=== PATIENT | female | born 1985 | race Hispanic/Latino ===

== ENCOUNTER 2018-12-23 16:59 | Emergency (ER) | payer MEDICAID ==
[2018-12-23] MEDS ORDERED: IBUPROFEN PO ONE (17:32)
--- NOTE | 2018-12-23 21:20 | Emergency Department Report ---
ED General Adult HPI - General Chief complaint: Upper Respiratory Infection Stated complaint: ABD PAIN/EXTREME PAIN Time Seen by Provider: 12/23/18 20:50 Source: patient Mode of arrival: Ambulatory Limitations: No Limitations - History of Present Illness Initial comments: pt is a 33 y/o aaf with hx of bronchitis who presents for bodyaches fever cough abd pain nausea no vomiting pt states with current menses pt denies sob bodyache described as 5/10 aching symptoms are exacerbated by activity symptoms are relieved by nothing. Onset/Timin -: days(s) Location: abdomen Radiation: non-radiation Severity scale (0 -10): 5 Quality: aching Consistency: constant Improves with: none Worsens with: other (activity ) Associated Symptoms: cough, fever/chills, malaise, nausea/vomiting. denies: rash, seizure Treatments Prior to Arrival: none - Related Data Previous Rx's Medication Instructions Recorded Last Taken Type HYDROcodone/APAP 5-325 [[place] 1 each PO Q6HR PRN #15 tablet 12/08/14 Unknown Rx 5-325 mg TAB] Promethazine [Phenergan] 25 mg PO Q6H PRN #20 tablet 12/08/14 Unknown Rx metroNIDAZOLE [Flagyl] 500 mg PO Q12H #14 tablet 12/08/14 Unknown Rx Ibuprofen [Motrin] 800 mg PO Q6H PRN #30 tablet 09/23/18 Unknown Rx Fluconazole [Diflucan TAB] 150 mg PO ONCE #1 tablet 12/24/18 Unknown Rx Ibuprofen 800 mg PO TID PRN #30 tablet 12/24/18 Unknown Rx Nitrofurantoin Monohyd/M-Cryst 100 mg PO BID 7 Days #14 capsule 12/24/18 Unknown Rx [Macrobid 100 mg Capsule] Allergies Allergy/AdvReac Type Severity Reaction Status Date / Time No Known Allergies Allergy Verified 09/22/18 16:16 ED Review of Systems ROS: Stated complaint: ABD PAIN/EXTREME PAIN Other details as noted in HPI Constitutional: fever, malaise Eyes: denies: eye pain, eye discharge, vision change ENT: congestion. denies: ear pain, throat pain, epistaxis Respiratory: cough Cardiovascular: denies: chest pain, palpitations Endocrine: no symptoms reported Gastrointestinal: abdominal pain, nausea. denies: diarrhea, constipation, hematemesis, melena, hematochezia Genitourinary: denies: urgency, dysuria, discharge Musculoskeletal: denies: back pain, joint swelling, arthralgia Skin: denies: rash, lesions Neurological: denies: headache, weakness, paresthesias Psychiatric: denies: anxiety, depression Hematological/Lymphatic: denies: easy bleeding, easy bruising ED Past Medical Hx - Past Medical History Previous Medical History?: No Hx Congestive Heart Failure: No Hx Diabetes: No Hx Asthma: No Additional medical history: gallbladder disease - Surgical History Past Surgical History?: Yes Additional Surgical History: 2010 - Social History Smoking Status: Current Every Day Smoker Substance Use Type: None - Medications Home Medications: Home Medications Medication Instructions Recorded Confirmed Last Taken Type HYDROcodone/APAP 5-325 [[place] 1 each PO Q6HR PRN #15 tablet 12/08/14 09/23/18 Unknown Rx 5-325 mg TAB] Promethazine [Phenergan] 25 mg PO Q6H PRN #20 tablet 12/08/14 09/23/18 Unknown Rx metroNIDAZOLE [Flagyl] 500 mg PO Q12H #14 tablet 12/08/14 09/23/18 Unknown Rx Ibuprofen [Motrin] 800 mg PO Q6H PRN #30 tablet 09/23/18 Unknown Rx Fluconazole [Diflucan TAB] 150 mg PO ONCE #1 tablet 12/24/18 Unknown Rx Ibuprofen 800 mg PO TID PRN #30 tablet 12/24/18 Unknown Rx Nitrofurantoin Monohyd/M-Cryst 100 mg PO BID 7 Days #14 capsule 12/24/18 Unkno wn Rx [Macrobid 100 mg Capsule] ED Physical Exam - General Limitations: No Limitations General appearance: alert, in no apparent distress - Head Head exam: Present: atraumatic, normocephalic - Eye Eye exam: Present: normal appearance, PERRL, EOMI Pupils: Present: normal accommodation - ENT ENT exam: Present: normal orophraynx, mucous membranes moist, TM's normal bilaterally, normal external ear exam - Neck Neck exam: Present: normal inspection, full ROM. Absent: tenderness, lymphadenopathy, thyromegaly - Respiratory Respiratory exam: Present: normal lung sounds bilaterally. Absent: respiratory distress, wheezes, stridor, chest wall tenderness - Cardiovascular Cardiovascular Exam: Present: regular rate, normal rhythm, normal heart sounds. Absent: systolic murmur, diastolic murmur, rubs, gallop - GI/Abdominal GI/Abdominal exam: Present: soft, normal bowel sounds. Absent: distended, tende rness, guarding, rebound, rigid, mass, bruit, pulsatile mass, hernia - Rectal Rectal exam: Present: deferred - Extremities Exam Extremities exam: Present: normal inspection, full ROM, normal capillary refill. Absent: tenderness, pedal edema, joint swelling - Back Exam Back exam: Present: normal inspection, full ROM. Absent: tenderness, CVA tenderness (R), CVA tenderness (L), muscle spasm, rash noted - Neurological Exam Neurological exam: Present: alert, oriented X3, CN II-XII intact, normal gait, reflexes normal - Psychiatric Psychiatric exam: Present: normal affect, normal mood - Skin Skin exam: Present: warm, dry, intact, normal color. Absent: rash ED Course Vital Signs 12/23/18 12/23/18 12/24/18 17:30 18:35 00:59 Temperature 101.6 F H Pulse Rate 111 H Respiratory 16 20 20 Rate Blood Pressure 152/95 O2 Sat by Pulse 95 Oximetry ED Medical Decision Making - Lab Data Result diagrams: 12/23/18 21:22 12/23/18 21:22 - Radiology Data Radiology results: report reviewed, image reviewed FINAL REPORT PROCEDURE: Chest. TECHNIQUE: PA and lateral views. HISTORY: Cough and fever. COMPARISON: No prior studies are available for comparison. FINDINGS: The heart and mediastinum appear normal. The lungs are clear and well expanded. There are no pleural effusions. The soft tissues and regional skeleton are unremarkable. IMPRESSION: Normal study. Transcribed By: MRM Dictated By: RANDY DOSHI MD Electronically Authenticated By: RANDY DOSHI MD Signed Date/Time: 12/23/182335 DD/ 34 TD/TT: 12/23/182334 - Medical Decision Making ua: pos leuk, wbc, bacteria, pt denies vaginal discharge is with current menses denies back pain no fever no chills plan: tx for uti given rocephin 1gm ivpb in ed, will dc to home with macrobid ibuprofen, will follow up with pcp in 2-3 days return to ed symptoms worsen, pt verbalized agreement and understanding of discharge plan. Critical care attestation.: If time is entered above; I have spent that time in minutes in the direct care of this critically ill patient, excluding procedure time. ED Disposition Clinical Impression: UTI (urinary tract infection) Qualifiers: Urinary tract infection type: acute cystitis Hematuria presence: without hematuria Qualified Code(s): N30.00 - Acute cystitis without hematuria Disposition: TO HOME OR SELFCARE Is pt being admited?: No Does the pt Need Aspirin: No Condition: Stable Instructions: Urinary Tract Infection in Women (ED) Prescriptions: Fluconazole [Diflucan TAB] 150 mg PO ONCE #1 tablet Ibuprofen 800 mg PO TID PRN #30 tablet PRN Reason: Pain , Severe (7-10) Nitrofurantoin Monohyd/M-Cryst [Macrobid 100 mg Capsule] 100 mg PO BID 7 Days #14 capsule Referrals: [facility] [Outside] - 3-5 Days Forms: Work/School Release Form(ED) Time of Disposition: 04:12
[2018-12-23 21:31] LABS: Basophils % (Auto) 0.3 % (0.0-1.8); Eosinophils % (Auto) 0.1 % (0.0-4.3); Hemoglobin 13.5 gm/dl (10.1-14.3); Lymphocytes % (Auto) 9.1 % (13.4-35.0); Mean Corpuscular HGB Conc 33 % (30-34); Mean Corpuscular Volume 83 fl (79-97); Monocytes # (Auto) 1.3 K/mm3 (0.0-0.8); Platelet Count 178 K/mm3 (140-440); Red Blood Count 4.92 M/mm3 (3.65-5.03); Red Cell Distribution Width 16.6 % (13.2-15.2)
[2018-12-23 21:54] LABS: Albumin 3.2 g/dL (3.9-5)
[2018-12-23] MEDS ORDERED: TORADOL IV ONE (23:07)
[2018-12-23] MEDS ORDERED: NACL 0.9% 1000 ML 1,000 ML IV ONE (23:07)
[2018-12-23] MEDS ORDERED: ZOFRAN IV ONE (23:07)
--- NOTE | 2018-12-23 23:36 | XRay Report ---
FINAL REPORT PROCEDURE: Chest. TECHNIQUE: PA and lateral views. HISTORY: Cough and fever. COMPARISON: No prior studies are available for comparison. FINDINGS: The heart and mediastinum appear normal. The lungs are clear and well expanded. There are no pleural effusions. The soft tissues and regional skeleton are unremarkable. IMPRESSION: Normal study.
[2018-12-24 03:33] LABS: Bacteria,Urine 2+ /HPF (Negative); Bilirubin,Urine NEG (Negative); Blood,Urine MOD (Negative); Color,Urine Amber (Yellow); Granular Casts,Urine 3 /LPF; Mucus,Urine FEW /HPF; Urobilinogen,Urine < 2.0 mg/dL (<2.0)
[2018-12-24 03:37] LABS: WBC,Urine > 182.0 /HPF (0.0-6.0)
[2018-12-24] MEDS ORDERED: ROCEPHIN/NS 1 GM/50 ML 1 GM/50 ML BAG IV ONE (04:05)
[2018-12-24 06:36] VITALS: BP 102/63
== END 2018-12-24 06:37 | disposition home or self-care (01) ==
LOC: ED 16:59
DX: N30.00 Acute cystitis without hematuria (principal); F17.200 Nicotine dependence, unspecified, uncomplicated
CPT/HCPCS: 36415; 71046; 80053; 81001; 83690; 84703; 85025; 96365; 96375; 99284; J0696; J1885; J2405; J7030

== ENCOUNTER 2019-05-30 20:19 | Emergency (ER) | payer SELFPAY ==
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
[2019-05-30 22:59] LABS: HCG Qualitative,Urine Negative (Negative)
[2019-05-30 23:00] LABS: Bilirubin,Urine NEG (Negative); Blood,Urine MOD (Negative); Color,Urine Yellow (Yellow); Hyaline Casts,Urine 1 /LPF; Mucus,Urine FEW /HPF; Urobilinogen,Urine < 2.0 mg/dL (<2.0)
[2019-05-30] MEDS ORDERED: TYLENOL PO ONE (23:38)
[2019-05-31] MEDS ORDERED: IBUPROFEN PO ONE (00:25)
[2019-05-31] MEDS ORDERED: BOOSTRIX IM ONE (00:25)
[2019-05-31] MEDS ORDERED: ZOFRAN ODT PO ONE (00:25)
[2019-05-31] MEDS ORDERED: NORCO 5/325 PO ONE (00:26)
[2019-05-31 01:17] VITALS: BP 147/92
[2019-05-31] MEDS ORDERED: LET TOPICAL TP ONE ×2 (02:40→02:43)
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
== END 2019-05-31 03:46 | disposition home or self-care (01) ==
LOC: ED 20:19
DX: S01.01XA Laceration without foreign body of scalp, initial encounter (principal); F17.200 Nicotine dependence, unspecified, uncomplicated; F12.10 Cannabis abuse, uncomplicated; Z79.1 Long term (current) use of non-steroidal anti-inflammatories (NSAID); Z79.899 Other long term (current) drug therapy; V89.2XXA Person injured in unspecified motor-vehicle accident, traffic, initial encounter; Y93.89 Activity, other specified; Y92.488 Other paved roadways as the place of occurrence of the external cause; Y99.8 Other external cause status
CPT/HCPCS: 70450; 81001; 81025; 90471; 90715; Q0162

== ENCOUNTER 2019-06-13 09:59 | Emergency (ER) | payer OTHER ==
--- NOTE | 2019-06-13 10:28 | Emergency Department Report ---
- General Chief Complaint: Laceration/Recheck/Suture Stated Complaint: TO HAVE DAVID REMOVED Time Seen by Provider: 06/13/19 10:24 Source: patient Mode of arrival: Ambulatory Limitations: No Limitations - History of Present Illness Initial Comments: Mady is a pleasant 33-year-old female who presents to the ER for staple removal. My colleague repaired of frontal scalp laceration with 6 david. This laceration was repaired 14 days ago on May 30. She has no other concerns. No signs of infection. - Related Data Previous Rx's Medication Instructions Recorded Last Taken Type HYDROcodone/APAP 5-325 [[place] 1 each PO Q6HR PRN #15 tablet 12/08/14 Unknown Rx 5-325 mg TAB] Promethazine [Phenergan] 25 mg PO Q6H PRN #20 tablet 12/08/14 Unknown Rx metroNIDAZOLE [Flagyl] 500 mg PO Q12H #14 tablet 12/08/14 Unknown Rx Ibuprofen [Motrin] 800 mg PO Q6H PRN #30 tablet 09/23/18 Unknown Rx Fluconazole [Diflucan TAB] 150 mg PO ONCE #1 tablet 12/24/18 Unknown Rx Ibuprofen [Ibuprofen 800] 800 mg PO TID PRN #30 tablet 12/24/18 Unknown Rx Nitrofurantoin Monohyd/M-Cryst 100 mg PO BID 7 Days #14 capsule 12/24/18 Unknown Rx [Macrobid 100 mg Capsule] Baclofen 20 mg PO Q8H PRN #15 tablet 05/31/19 Unknown Rx Ibuprofen [Motrin] 800 mg PO Q8HR PRN #24 tablet 05/31/19 Unknown Rx Ondansetron [Zofran Odt] 4 mg PO Q6HR PRN #15 tab.rapdis 05/31/19 Unknown Rx cephALEXin [Keflex] 500 mg PO Q8HR #30 cap 05/31/19 Unknown Rx traMADol [Ultram] 50 mg PO Q6HR PRN #15 tablet 05/31/19 Unknown Rx Allergies Allergy/AdvReac Type Severity Reaction Status Date / Time No Known Allergies Allergy Verified 05/30/19 21:02 ED Review of Systems ROS: Stated complaint: TO HAVE DAVID REMOVED Other details as noted in HPI ED Past Medical Hx - Past Medical History Previous Medical History?: No Hx Congestive Heart Failure: No Hx Diabetes: No Hx Asthma: No Additional medical history: gallbladder disease - Surgical History Past Surgical History?: Yes Additional Surgical History: 2010 - Social History Smoking Status: Current Every Day Smoker Substance Use Type: None - Medications Home Medications: Home Medications Medication Instructions Recorded Confirmed Last Taken Type HYDROcodone/APAP 5-325 [[place] 1 each PO Q6HR PRN #15 tablet 12/08/14 09/23/18 Unknown Rx 5-325 mg TAB] Promethazine [Phenergan] 25 mg PO Q6H PRN #20 tablet 12/08/14 09/23/18 Unknown Rx metroNIDAZOLE [Flagyl] 500 mg PO Q12H #14 tablet 12/08/14 09/23/18 Unknown Rx Ibuprofen [Motrin] 800 mg PO Q6H PRN #30 tablet 09/23/18 Unknown Rx Fluconazole [Diflucan TAB] 150 mg PO ONCE #1 tablet 12/24/18 Unknown Rx Ibuprofen [Ibuprofen 800] 800 mg PO TID PRN #30 tablet 12/24/18 Unknown Rx Nitrofurantoin Monohyd/M-Cryst 100 mg PO BID 7 Days #14 capsule 12/24/18 Unknown Rx [Macrobid 100 mg Capsule] Baclofen 20 mg PO Q8H PRN #15 tablet 05/31/19 Unknown Rx Ibuprofen [Motrin] 800 mg PO Q8HR PRN #24 tablet 05/31/19 Unknown Rx Ondansetron [Zofran Odt] 4 mg PO Q6HR PRN #15 tab.rapdis 05/31/19 Unknown Rx cephALEXin [Keflex] 500 mg PO Q8HR #30 cap 05/31/19 Unknown Rx traMADol [Ultram] 50 mg PO Q6HR PRN #15 tablet 05/31/19 Unknown Rx ED Physical Exam - General Limitations: No Limitations General appearance: alert, in no apparent distress - Head Head exam: Present: atraumatic, normocephalic, other (6 dvaid right front scalp laceration well-healed) - Neurological Exam Neurological exam: Present: alert, oriented X3 - Psychiatric Psychiatric exam: Present: normal affect, normal mood - Skin Skin exam: Present: warm, dry, intact, normal color ED Course Vital Signs 06/13/19 10:03 Temperature 98.5 F Pulse Rate 86 Respiratory 18 Rate Blood Pressure 150/99 O2 Sat by Pulse 98 Oximetry - Procedure Description Procedures done: Staple removal. I removed 6 stables with staple remover. Incision well healed, well approximated without infection. ED Medical Decision Making - Medical Decision Making Staple removal. I removed 6 stables with staple remover. Incision well healed, well approximated without infection. I provided wound care instructions. Critical care attestation.: If time is entered above; I have spent that time in minutes in the direct care of this critically ill patient, excluding procedure time. ED Disposition Clinical Impression: Removal of staple, Laceration of scalp Disposition: TO HOME OR SELFCARE Is pt being admited?: No Does the pt Need Aspirin: No Condition: Stable Instructions: Suture Removal (ED)
[2019-06-13 10:37] VITALS: BP 146/90
== END 2019-06-13 10:35 | disposition home or self-care (01) ==
LOC: ED 09:59
DX: S01.01XD Laceration without foreign body of scalp, subsequent encounter (principal); F17.200 Nicotine dependence, unspecified, uncomplicated; Z79.899 Other long term (current) drug therapy; Z87.19 Personal history of other diseases of the digestive system; X58.XXXD Exposure to other specified factors, subsequent encounter